=== PATIENT | male | born 1965 | race Native Hawaiian/Other Pacific Islander ===

== ENCOUNTER 2018-09-18 06:46 | Day surgery (SDC) | payer OTHER ==
[2018-09-18] MEDS ORDERED: Lactated Ringer's 500 ML IV ONE ×2 (08:32)
[2018-09-18] MEDS ORDERED: Propofol 10 mg/ml Inj (20 ML) ONE (08:36)
[2018-09-18] MEDS ORDERED: Lidocaine Hydrochloride 5 ML INJ ONE (08:36)
[2018-09-18 08:39] VITALS: O2SAT 100
[2018-09-18 11:44] VITALS: BP 121/79; PULSE 69; RESP 21; TEMP 97.7
== END 2018-09-18 11:00 | disposition home or self-care (01) ==
LOC: C.ENDO 06:46
PROVIDERS: ATTEND Internal Medicine Gastroenterology
DX: Z12.11 Encounter for screening for malignant neoplasm of colon (principal); D12.3 Benign neoplasm of transverse colon; D12.4 Benign neoplasm of descending colon; D12.5 Benign neoplasm of sigmoid colon; K64.8 Other hemorrhoids
CPT/HCPCS: 45380; 45385; 88305; J2704; J7120